=== PATIENT | male | born 1975 | race Caucasian/White ===

== ENCOUNTER → 2020-11-18 | Outpatient (CLI) | payer BC ==
--- NOTE | 2020-11-18 12:54 | KCIC ---
Exam:Right ribs with PA chest Date: 11/18/2020 10:04 AM Comparison: No prior Indication: Reason: Rt rib and back pain since early October. / Spl. Instructions: / History: Findings/ Impression: The heart is not enlarged. Mediastinal and hilar contours are normal. No focal parenchymal airspace o pacity. No pleural effusion or pneumothorax. Calcified granuloma right upper lung. AP, Oblique and Spot images of the right ribs are negative for acute displaced rib fracture. Negativ e focal pleural elevation. Symmetrical intercostal spacing. It is of note that an acute non-displaced rib fracture can be in-apparent on initial post-trauma imag ing. Electronically signed by: Anoop Christianson MD (11/18/2020 12:51 PM) [id number]
--- NOTE | 2020-11-18 12:59 | KCIC ---
EXAM: 1. AP and lateral views left tibia/fibula 2. AP and lateral views of the left knee. DATE: 11/18/2020 10:04 AM INDICATION: Reason: Jumping injury, landed on foot wrong. Calcaneous fx. / Spl. Instructions: / Hist ory: COMPARISON: No Prior FINDINGS: No acute fracture or dislocation of the left knee or tibia/fibula. There is a comminuted fracture of the calcaneus with posterior subtalar joint extension and abnormal Boehler's and Gissane angles, can be better assessed on dedicated calcaneal radiographs.. Joint spaces are preserved without significan t degenerative/proliferative change. No knee joint effusion. IMPRESSION: 1. No acute fracture or dislocation of the left knee or tibia/fibula 2. Comminuted fracture of the left calcaneus is partially profiled. Consider dedicated calcaneal rad iographs. If clinically indicated spine radiographs can be obtained based on mechanism of injury. Electronically signed by: Anoop Christianson MD (11/18/2020 12:57 PM) [id number]
== END ==
LOC: KCIC 09:59
PROVIDERS: ATTEND Family Medicine
DX: S92.002A Unspecified fracture of left calcaneus, initial encounter for closed fracture (principal); J84.10 Pulmonary fibrosis, unspecified; M79.605 Pain in left leg; R07.81 Pleurodynia; Y93.39 Activity, other involving climbing, rappelling and jumping off; Y93.89 Activity, other specified; Y92.89 Other specified places as the place of occurrence of the external cause; Y99.8 Other external cause status
CPT/HCPCS: 71101; 73560; 73590